=== PATIENT | male | born 1940 | race Caucasian/White ===

== ENCOUNTER 2018-11-30 06:27 | Inpatient (IN) ==
[2018-11-22 12:29] LABS: Basophils # 0.1 10*3/uL (0.0-0.2); Basophils % 1.2 % (0.0-0.8); Eosinophils # 0.2 10*3/uL (0.0-0.87); Eosinophils % 3.2 % (0.00-10.9); Hematocrit 48.5 VOL% (42.0-52.0); Hemoglobin 15.5 GM/DL (14.0-18.0); Immature Granulocytes % 0.5 %; Immature Granulocytes Absolute 0.03 #; Lymphocytes # 1.2 10*3/uL (1.4-4.0); Lymphocytes % 20.5 % (21.2-54.2); Mean Corpuscular Volume 92.2 FL (87-102); Mean Platelet Volume 9.3 FL (9.6-12.0); Monocytes % 8.6 % (1.7-12.7); Platelet Count 152 T/CUMM (130-400); Red Blood Count 5.26 MC/CUMM (3.8-5.5)
[2018-11-22 13:04] LABS: Albumin 3.8 G/DL (3.4-5.0); Bilirubin,Total 0.4 MG/DL (0.2-1.0); Calcium 8.8 MG/DL (8.5-10.1); Osmolality,Calculated 280.5 MOS/KG (273-304); Total Protein 7.6 G/DL (6.4-8.3)
[~2018-11-30 06:27] MED LIST: DIAZEPAM 5 MG TABLET PO ONE; FAMOTIDINE 20 MG TABLET PO ONE
[2018-11-30] MEDS ORDERED: LEVOFLOXACIN 500 MG TABLET PO ONE (06:30)
[2018-11-30] MEDS ORDERED: LACTATED RINGERS 1,000 ML IV SCH (07:00)
[2018-11-30] MEDS ORDERED: LIDOCAINE 2% TOP JELLY 20 ML VIAL INTRAURETH ONE (09:04)
[2018-11-30] MEDS ORDERED: BELLADONNA/OPIUM 30 MG SUPP RECTAL ONE (11:03)
[2018-11-30] MEDS ORDERED: ONDANSETRON 4 MG/2 ML VIAL IV PRN ×2 (11:09→11:21)
[2018-11-30] MEDS ORDERED: LACTULOSE 20 GM/30 ML UDCUP PO PRN (11:09)
[2018-11-30] MEDS ORDERED: oxyCODONE/ACETAMINOPHEN 5-325 MG TABLET PO PRN (11:09)
[2018-11-30] MEDS ORDERED: diphenhydrAMINE 50 MG/1 ML VIAL IV PRN (11:09)
[2018-11-30] MEDS ORDERED: BELLADONNA/OPIUM 30 MG SUPP RECTAL PRN (11:15)
[2018-11-30] MEDS ORDERED: SEVOFLURANE 1 UNIT/15 MINUTE INH ONE (11:15)
[2018-11-30] MEDS ORDERED: fentaNYL 100 MCG/2 ML VIAL ONE (11:15)
[2018-11-30] MEDS ORDERED: HYDROmorphone 2 MG/1 ML VIAL IV PRN ×2 (11:15→11:21)
[2018-11-30] MEDS ORDERED: LIDOCAINE 100 MG/5 ML SYRINGE ONE (11:15)
[2018-11-30] MEDS ORDERED: propofoL 200 MG/20 ML VIAL IV ONE (11:16)
[2018-11-30] MEDS ORDERED: PHENYLEPHRINE 1 MG/10 ML SYRINGE IV ONE (11:16)
[2018-11-30 11:59] LABS: Basophils # 0.1 10*3/uL (0.0-0.2); Basophils % 1.2 % (0.0-0.8); Eosinophils # 0.2 10*3/uL (0.0-0.87); Hematocrit 44.1 VOL% (42.0-52.0); Hemoglobin 14.2 GM/DL (14.0-18.0); Immature Granulocytes % 0.2 %; Immature Granulocytes Absolute 0.01 #; Lymphocytes # 1.3 10*3/uL (1.4-4.0); Lymphocytes % 22.8 % (21.2-54.2); Mean Corpuscular HGB Conc 32.2 GM/DL (32-36); Mean Corpuscular Volume 91.1 FL (87-102); Mean Platelet Volume 9.2 FL (9.6-12.0); Monocytes % 9.2 % (1.7-12.7); Neutrophils % 62.6 % (38.7-73.9); Platelet Count 156 T/CUMM (130-400); Red Blood Count 4.84 MC/CUMM (3.8-5.5); White Blood Count 5.7 T/CUMM (4-12)
[2018-11-30 12:15] LABS: Calcium 8.3 MG/DL (8.5-10.1); Osmolality,Calculated 282.5 MOS/KG (273-304)
[2018-11-30] MEDS: ACETAMINOPHEN 325 MG TABLET PO SCH ×3 (13:03→23:35)
[2018-11-30] MEDS: ceFAZolin 1,000 MG in SYRINGE 1 EACH IV SCH (17:51)
[2018-11-30] MEDS: traZODone 50 MG TABLET PO SCH (21:08)
[2018-11-30] MEDS: MONTELUKAST 10 MG TABLET PO SCH (21:08)
[2018-11-30] MEDS: DOCUSATE SODIUM 100 MG CAPSULE PO SCH (21:08)
[2018-12-01] MEDS ORDERED: NITROGLYCERIN SL 0.4 MG TABLET SL ONE ×2 (00:45→00:51)
[2018-12-01] MEDS ORDERED: MORPHINE 4 MG/1 ML VIAL ONE (00:45)
[2018-12-01] MEDS ORDERED: ASPIRIN 325 MG TABLET ONE (00:45)
[2018-12-01] MEDS ORDERED: BIVALIRUDIN IV ONE (01:13)
[2018-12-01] MEDS ORDERED: HEPARIN/NACL 0.9% 2 UNITS/ML 1,000 ML IV ONE (01:25)
[2018-12-01] MEDS ORDERED: LIDOCAINE 1% 20 ML VIAL ONE (01:25)
[2018-12-01 01:26] LABS: Albumin 3.5 G/DL (3.4-5.0); Bilirubin,Total 0.4 MG/DL (0.2-1.0); Calcium 8.8 MG/DL (8.5-10.1); Osmolality,Calculated 279.8 MOS/KG (273-304); Total Protein 7.1 G/DL (6.4-8.3)
[2018-12-01 01:28] LABS: PT Patient Result 11.3 SECS (9.6-12.2); Partial Thromboplastin Time 24.9 SECS (20.8-36.0)
[2018-12-01 01:40] LABS: Basophils # 0.1 10*3/uL (0.0-0.2); Basophils % 0.9 % (0.0-0.8); Eosinophils # 0.3 10*3/uL (0.0-0.87); Eosinophils % 3.4 % (0.00-10.9); Hematocrit 47.7 VOL% (42.0-52.0); Hemoglobin 15.5 GM/DL (14.0-18.0); Immature Granulocytes % 0.4 %; Immature Granulocytes Absolute 0.04 #; Lymphocytes # 2.2 10*3/uL (1.4-4.0); Lymphocytes % 23.4 % (21.2-54.2); Mean Corpuscular HGB Conc 32.5 GM/DL (32-36); Mean Corpuscular Volume 90.7 FL (87-102); Mean Platelet Volume 9.8 FL (9.6-12.0); Monocytes % 10.5 % (1.7-12.7); Neutrophils % 61.4 % (38.7-73.9); Platelet Count 188 T/CUMM (130-400); Red Blood Count 5.26 MC/CUMM (3.8-5.5); Red Cell Distribution Width 14.1 % (9.3-17.3); White Blood Count 9.2 T/CUMM (4-12)
[2018-12-01] MEDS ORDERED: HEPARIN/NACL 0.9% 2 UNITS/ML 500 ML IV ONE (02:20)
[2018-12-01] MEDS ORDERED: BIVALIRUDIN 250 MG VIAL IV ONE ×2 (02:22→03:21)
[2018-12-01] MEDS ORDERED: CLOPIDOGREL 300 MG TABLET ONE (03:00)
[2018-12-01] MEDS ORDERED: MORPHINE 4 MG/1 ML VIAL IV PRN (03:59)
[2018-12-01] MEDS ORDERED: METOPROLOL TARTRATE 5 MG/5 ML VIAL IV ONE (04:00)
[2018-12-01] MEDS: METOPROLOL TARTRATE 5 MG/5 ML VIAL IV SCH ×4 (04:00→17:17)
[2018-12-01] MEDS ORDERED: SODIUM CHLORIDE 0.9% 1,000 ML IV SCH (04:00)
[2018-12-01] MEDS ORDERED: hydrALAZINE 20 MG/1 ML VIAL IV PRN (04:02)
[2018-12-01] MEDS ORDERED: CLOPIDOGREL 300 MG TABLET PO ONE (04:33)
[2018-12-01] MEDS: CLINDAMYCIN INJ 300 MG in PREMIX 1 EACH IV SCH ×3 (05:13→17:17)
[2018-12-01] MEDS: PIPERACILLIN/TAZOBACTAM 3,375 MG in SODIUM CHLORIDE 0.9% 100 ML IV SCH ×3 (05:13→19:00)
[2018-12-01 06:34] LABS: CKMB % 7.4 %; Risk Ratio 3.53; VLDL CHOLESTEROL 41.4 MG/DL
[2018-12-01] MEDS: ACETAMINOPHEN 325 MG TABLET PO SCH ×3 (07:06→17:17)
[2018-12-01 07:36] LABS: ABG Base Excess -2.7 MMOL/L (-2.5-2.5); ABG HCO3 22.2 MMOL/L (20-26); ABG PCO2 27.2 MM HG (35-48); ABG PH 7.461 (7.35-7.45); ABG TCO2 16.2 MMOL/L (23-27)
[2018-12-01] MEDS: BIVALIRUDIN 250 MG in SODIUM CHLORIDE 0.9% 50 ML IV SCH ×2 (08:05→08:08)
[2018-12-01] MEDS: ceFAZolin 1,000 MG in SYRINGE 1 EACH IV SCH (08:07)
[2018-12-01] MEDS: ASPIRIN 325 MG TABLET PO SCH (08:50)
[2018-12-01] MEDS: allopurinoL 300 MG TABLET PO SCH (08:51)
[2018-12-01] MEDS: DOCUSATE SODIUM 100 MG CAPSULE PO SCH ×2 (08:51→20:10)
[2018-12-01] MEDS: FUROSEMIDE 20 MG TABLET PO SCH (08:51)
[2018-12-01] MEDS: FAMOTIDINE 20 MG TABLET PO SCH (08:51)
[2018-12-01] MEDS: ROSUVASTATIN 20 MG TABLET PO SCH (08:51)
[2018-12-01] MEDS: atenoloL 25 MG TABLET PO SCH (08:52)
[2018-12-01] MEDS: SERTRALINE 25 MG TABLET PO SCH (08:52)
[2018-12-01 09:59] LABS: ABG Base Excess -2.1 MMOL/L (-2.5-2.5); ABG HCO3 22.7 MMOL/L (20-26); ABG Oxygen Saturation 99.4 % (95-100); ABG PCO2 34.9 MM HG (35-48); ABG PH 7.404 (7.35-7.45); ABG TCO2 18.3 MMOL/L (23-27)
[2018-12-01 13:40] LABS: CKMB % 5.9 %
[2018-12-01 13:43] LABS: Troponin I > 200.000 NG/ML (0.00-0.045)
[2018-12-01] MEDS: traZODone 50 MG TABLET PO SCH (20:11)
[2018-12-01] MEDS: MONTELUKAST 10 MG TABLET PO SCH (20:12)
[2018-12-01 21:01] LABS: CKMB % 4.5 %
[2018-12-02 03:15] LABS: ABG Base Excess -2.9 MMOL/L (-2.5-2.5); ABG Oxygen Saturation 99.3 % (95-100); ABG PCO2 32.4 MM HG (35-48); ABG PH 7.413 (7.35-7.45); ABG TCO2 17.8 MMOL/L (23-27)
[2018-12-02 03:20] LABS: Basophils % 0.2 % (0.0-0.8); Hematocrit 42.4 VOL% (42.0-52.0); Hemoglobin 13.8 GM/DL (14.0-18.0); Immature Granulocytes % 0.5 %; Immature Granulocytes Absolute 0.05 #; Mean Corpuscular HGB Conc 32.5 GM/DL (32-36); Mean Corpuscular Volume 89.8 FL (87-102); Mean Platelet Volume 9.6 FL (9.6-12.0); Monocytes % 9.8 % (1.7-12.7); Neutrophils % 79.5 % (38.7-73.9); Platelet Count 161 T/CUMM (130-400); Red Blood Count 4.72 MC/CUMM (3.8-5.5); Red Cell Distribution Width 14.6 % (9.3-17.3); White Blood Count 9.6 T/CUMM (4-12)
[2018-12-02 03:37] LABS: Calcium 7.9 MG/DL (8.5-10.1); Osmolality,Calculated 286.4 MOS/KG (273-304)
[2018-12-02] MEDS: PIPERACILLIN/TAZOBACTAM 3,375 MG in SODIUM CHLORIDE 0.9% 100 ML IV SCH ×3 (04:00→21:21)
[2018-12-02] MEDS: CLINDAMYCIN INJ 300 MG in PREMIX 1 EACH IV SCH ×3 (05:23→11:26)
[2018-12-02] MEDS: METOPROLOL TARTRATE 5 MG/5 ML VIAL IV SCH ×5 (06:03→23:55)
[2018-12-02] MEDS: ACETAMINOPHEN 325 MG TABLET PO SCH ×5 (08:03→23:55)
[2018-12-02] MEDS: FUROSEMIDE 20 MG TABLET PO SCH (08:22)
[2018-12-02] MEDS: SERTRALINE 25 MG TABLET PO SCH (08:22)
[2018-12-02] MEDS: allopurinoL 300 MG TABLET PO SCH (08:22)
[2018-12-02] MEDS: FAMOTIDINE 20 MG TABLET PO SCH (08:22)
[2018-12-02] MEDS: ASPIRIN 325 MG TABLET PO SCH (08:22)
[2018-12-02] MEDS: CLOPIDOGREL 75 MG TABLET PO SCH (08:22)
[2018-12-02] MEDS: ROSUVASTATIN 20 MG TABLET PO SCH (08:22)
[2018-12-02] MEDS: DOCUSATE SODIUM 100 MG CAPSULE PO SCH ×2 (08:53→21:21)
[2018-12-02 10:40] LABS: ABG Base Excess -2.8 MMOL/L (-2.5-2.5); ABG Oxygen Saturation 94.3 % (95-100); ABG PCO2 33.8 MM HG (35-48); ABG PH 7.403 (7.35-7.45); ABG PO2 68.4 MM HG (80-95); ABG TCO2 18.1 MMOL/L (23-27); Pt O2 Delivery Device Ventilator
[2018-12-02] MEDS: ALBUTEROL/IPRATROPIUM 3 ML NEB RESP TX SCH ×3 (15:40→23:41)
[2018-12-02] MEDS: traZODone 50 MG TABLET PO SCH (21:21)
[2018-12-02] MEDS: MONTELUKAST 10 MG TABLET PO SCH (21:21)
[2018-12-03] MEDS: ALBUTEROL/IPRATROPIUM 3 ML NEB RESP TX SCH ×6 (03:54→23:42)
[2018-12-03 04:35] LABS: Basophils % 0.3 % (0.0-0.8); Eosinophils % 0.1 % (0.00-10.9); Hematocrit 43.6 VOL% (42.0-52.0); Hemoglobin 13.8 GM/DL (14.0-18.0); Immature Granulocytes % 0.5 %; Immature Granulocytes Absolute 0.05 #; Lymphocytes # 0.9 10*3/uL (1.4-4.0); Mean Corpuscular HGB Conc 31.7 GM/DL (32-36); Mean Corpuscular Volume 92.2 FL (87-102); Mean Platelet Volume 10.1 FL (9.6-12.0); Monocytes % 10.8 % (1.7-12.7); Neutrophils % 79.3 % (38.7-73.9); Platelet Count 143 T/CUMM (130-400); Red Blood Count 4.73 MC/CUMM (3.8-5.5); Red Cell Distribution Width 14.6 % (9.3-17.3); White Blood Count 10.4 T/CUMM (4-12)
[2018-12-03 04:59] LABS: Calcium 8.4 MG/DL (8.5-10.1)
[2018-12-03] MEDS: PIPERACILLIN/TAZOBACTAM 3,375 MG in SODIUM CHLORIDE 0.9% 100 ML IV SCH ×2 (06:00→16:45)
[2018-12-03] MEDS: METOPROLOL TARTRATE 5 MG/5 ML VIAL IV SCH ×3 (06:01→18:28)
[2018-12-03] MEDS: ACETAMINOPHEN 325 MG TABLET PO SCH ×3 (06:01→18:27)
[2018-12-03] MEDS: ROSUVASTATIN 20 MG TABLET PO SCH (08:40)
[2018-12-03] MEDS: allopurinoL 300 MG TABLET PO SCH (08:40)
[2018-12-03] MEDS: DOCUSATE SODIUM 100 MG CAPSULE PO SCH ×2 (08:40→21:38)
[2018-12-03] MEDS: CLOPIDOGREL 75 MG TABLET PO SCH (08:40)
[2018-12-03] MEDS: FAMOTIDINE 20 MG TABLET PO SCH (08:40)
[2018-12-03] MEDS: FUROSEMIDE 20 MG TABLET PO SCH (08:40)
[2018-12-03] MEDS: ASPIRIN 325 MG TABLET PO SCH (08:41)
[2018-12-03] MEDS: SERTRALINE 25 MG TABLET PO SCH (08:41)
[2018-12-03] MEDS ORDERED: AMIODARONE INJ 450 MG in DEXTROSE 5% 241 ML IV SCH (09:00)
[2018-12-03] MEDS: atenoloL 25 MG TABLET PO SCH ×2 (13:29→14:28)
[2018-12-03] MEDS: AMIODARONE INJ 450 MG in DEXTROSE 5% 241 ML IV SCH (18:05)
[2018-12-03] MEDS: traZODone 50 MG TABLET PO SCH (21:38)
[2018-12-03] MEDS: MONTELUKAST 10 MG TABLET PO SCH (21:38)
[2018-12-04] MEDS: ACETAMINOPHEN 325 MG TABLET PO SCH ×5 (00:20→23:44)
[2018-12-04] MEDS: METOPROLOL TARTRATE 5 MG/5 ML VIAL IV SCH ×5 (00:21→23:45)
[2018-12-04] MEDS: PIPERACILLIN/TAZOBACTAM 3,375 MG in SODIUM CHLORIDE 0.9% 100 ML IV SCH ×3 (00:21→17:15)
[2018-12-04] MEDS: ALBUTEROL/IPRATROPIUM 3 ML NEB RESP TX SCH ×5 (03:14→20:53)
[2018-12-04 04:54] LABS: Basophils # 0.1 10*3/uL (0.0-0.2); Basophils % 0.7 % (0.0-0.8); Eosinophils # 0.1 10*3/uL (0.0-0.87); Hematocrit 45.3 VOL% (42.0-52.0); Hemoglobin 14.4 GM/DL (14.0-18.0); Immature Granulocytes % 0.8 %; Immature Granulocytes Absolute 0.08 #; Lymphocytes # 0.9 10*3/uL (1.4-4.0); Mean Corpuscular HGB Conc 31.8 GM/DL (32-36); Mean Platelet Volume 10.2 FL (9.6-12.0); Monocytes % 10.5 % (1.7-12.7); Platelet Count 134 T/CUMM (130-400); Red Blood Count 4.87 MC/CUMM (3.8-5.5); Red Cell Distribution Width 14.6 % (9.3-17.3); White Blood Count 10.5 T/CUMM (4-12)
[2018-12-04 05:09] LABS: Calcium 8.6 MG/DL (8.5-10.1); Osmolality,Calculated 282.5 MOS/KG (273-304)
[2018-12-04] MEDS: ROSUVASTATIN 20 MG TABLET PO SCH (09:20)
[2018-12-04] MEDS: CLOPIDOGREL 75 MG TABLET PO SCH (09:21)
[2018-12-04] MEDS: FAMOTIDINE 20 MG TABLET PO SCH (09:21)
[2018-12-04] MEDS: DOCUSATE SODIUM 100 MG CAPSULE PO SCH ×2 (09:21→20:59)
[2018-12-04] MEDS: ASPIRIN 325 MG TABLET PO SCH (09:21)
[2018-12-04] MEDS: FUROSEMIDE 20 MG TABLET PO SCH (09:21)
[2018-12-04] MEDS: SERTRALINE 25 MG TABLET PO SCH (09:21)
[2018-12-04] MEDS: allopurinoL 300 MG TABLET PO SCH (09:21)
[2018-12-04] MEDS: AMIODARONE INJ 450 MG in DEXTROSE 5% 241 ML IV SCH (11:16)
[2018-12-04] MEDS: FLUTICASONE 50 MCG NASAL SPRAY 16 GM BOTTLE BOTH NARES SCH ×2 (11:56→21:01)
[2018-12-04] MEDS: traZODone 50 MG TABLET PO SCH (20:59)
[2018-12-04] MEDS: MONTELUKAST 10 MG TABLET PO SCH (20:59)
[2018-12-04] MEDS ORDERED: atenoloL 25 MG TABLET PO SCH (21:00)
[2018-12-05] MEDS: PIPERACILLIN/TAZOBACTAM 3,375 MG in SODIUM CHLORIDE 0.9% 100 ML IV SCH ×3 (00:56→18:09)
[2018-12-05] MEDS: ALBUTEROL/IPRATROPIUM 3 ML NEB RESP TX SCH ×6 (01:29→20:54)
[2018-12-05 05:10] LABS: Basophils # 0.1 10*3/uL (0.0-0.2); Basophils % 0.6 % (0.0-0.8); Eosinophils # 0.3 10*3/uL (0.0-0.87); Eosinophils % 3.6 % (0.00-10.9); Hematocrit 46.3 VOL% (42.0-52.0); Hemoglobin 14.8 GM/DL (14.0-18.0); Immature Granulocytes % 0.7 %; Immature Granulocytes Absolute 0.07 #; Lymphocytes % 10.7 % (21.2-54.2); Mean Corpuscular Volume 91.1 FL (87-102); Mean Platelet Volume 9.9 FL (9.6-12.0); Monocytes % 12.1 % (1.7-12.7); Neutrophils % 72.3 % (38.7-73.9); Platelet Count 149 T/CUMM (130-400); Red Blood Count 5.08 MC/CUMM (3.8-5.5); Red Cell Distribution Width 14.5 % (9.3-17.3); White Blood Count 9.5 T/CUMM (4-12)
[2018-12-05 05:12] LABS: Osmolality,Calculated 288.1 MOS/KG (273-304)
[2018-12-05] MEDS: METOPROLOL TARTRATE 5 MG/5 ML VIAL IV SCH (05:19)
[2018-12-05] MEDS: ACETAMINOPHEN 325 MG TABLET PO SCH ×3 (05:19→18:09)
[2018-12-05] MEDS ORDERED: ASPIRIN CHEW 81 MG TABLET PO SCH (09:00)
[2018-12-05] MEDS: CLOPIDOGREL 75 MG TABLET PO SCH (09:20)
[2018-12-05] MEDS: FUROSEMIDE 20 MG TABLET PO SCH (09:20)
[2018-12-05] MEDS: SERTRALINE 25 MG TABLET PO SCH (09:20)
[2018-12-05] MEDS: allopurinoL 300 MG TABLET PO SCH (09:20)
[2018-12-05] MEDS: FAMOTIDINE 20 MG TABLET PO SCH (09:20)
[2018-12-05] MEDS: FLUTICASONE 50 MCG NASAL SPRAY 16 GM BOTTLE BOTH NARES SCH ×2 (09:21→21:56)
[2018-12-05] MEDS: ROSUVASTATIN 20 MG TABLET PO SCH (09:21)
[2018-12-05] MEDS: DOCUSATE SODIUM 100 MG CAPSULE PO SCH ×2 (09:21→21:55)
[2018-12-05] MEDS: ASPIRIN 325 MG TABLET PO SCH (09:21)
[2018-12-05] MEDS ORDERED: atenoloL 25 MG TABLET PO SCH (09:58)
[2018-12-05] MEDS ORDERED: atenoloL 25 MG TABLET PO ONE (09:58)
[2018-12-05] MEDS: MONTELUKAST 10 MG TABLET PO SCH (21:54)
[2018-12-05] MEDS: APIXABAN 2.5 MG TABLET PO SCH (21:55)
[2018-12-05] MEDS: traZODone 50 MG TABLET PO SCH (21:55)
[2018-12-06] MEDS: ALBUTEROL/IPRATROPIUM 3 ML NEB RESP TX SCH ×7 (00:58→23:44)
[2018-12-06] MEDS: ACETAMINOPHEN 325 MG TABLET PO SCH ×5 (01:37→23:00)
[2018-12-06] MEDS: PIPERACILLIN/TAZOBACTAM 3,375 MG in SODIUM CHLORIDE 0.9% 100 ML IV SCH ×3 (02:35→18:21)
[2018-12-06 04:04] LABS: Osmolality,Calculated 280.7 MOS/KG (273-304)
[2018-12-06] MEDS: CLOPIDOGREL 75 MG TABLET PO SCH (09:42)
[2018-12-06] MEDS: ROSUVASTATIN 20 MG TABLET PO SCH (09:42)
[2018-12-06] MEDS: FUROSEMIDE 20 MG TABLET PO SCH (09:43)
[2018-12-06] MEDS: APIXABAN 2.5 MG TABLET PO SCH ×2 (09:43→21:25)
[2018-12-06] MEDS: DOCUSATE SODIUM 100 MG CAPSULE PO SCH ×2 (09:43→21:25)
[2018-12-06] MEDS: allopurinoL 300 MG TABLET PO SCH (09:43)
[2018-12-06] MEDS: SERTRALINE 25 MG TABLET PO SCH (09:43)
[2018-12-06] MEDS: atenoloL 25 MG TABLET PO SCH ×2 (09:43→21:25)
[2018-12-06] MEDS: FAMOTIDINE 20 MG TABLET PO SCH (09:43)
[2018-12-06] MEDS: FLUTICASONE 50 MCG NASAL SPRAY 16 GM BOTTLE BOTH NARES SCH ×2 (09:44→21:25)
[2018-12-06] MEDS: SODIUM CHLORIDE 0.9% 1,000 ML IV SCH (16:00)
[2018-12-06] MEDS: MONTELUKAST 10 MG TABLET PO SCH (21:25)
[2018-12-06] MEDS: traZODone 50 MG TABLET PO SCH (21:25)
[2018-12-07] MEDS: ALBUTEROL/IPRATROPIUM 3 ML NEB RESP TX SCH ×2 (03:08→07:10)
[2018-12-07 04:49] LABS: Basophils # 0.1 10*3/uL (0.0-0.2); Basophils % 0.8 % (0.0-0.8); Eosinophils # 0.4 10*3/uL (0.0-0.87); Eosinophils % 4.3 % (0.00-10.9); Hematocrit 41.5 VOL% (42.0-52.0); Hemoglobin 13.2 GM/DL (14.0-18.0); Immature Granulocytes % 0.7 %; Immature Granulocytes Absolute 0.06 #; Lymphocytes % 11.1 % (21.2-54.2); Mean Corpuscular HGB Conc 31.8 GM/DL (32-36); Mean Corpuscular Volume 90.4 FL (87-102); Neutrophils % 70.1 % (38.7-73.9); Platelet Count 190 T/CUMM (130-400); Red Blood Count 4.59 MC/CUMM (3.8-5.5); Red Cell Distribution Width 14.4 % (9.3-17.3); White Blood Count 8.9 T/CUMM (4-12)
[2018-12-07 05:19] LABS: Calcium 8.8 MG/DL (8.5-10.1); Osmolality,Calculated 280.7 MOS/KG (273-304)
[2018-12-07] MEDS: PIPERACILLIN/TAZOBACTAM 3,375 MG in SODIUM CHLORIDE 0.9% 100 ML IV SCH (06:15)
[2018-12-07] MEDS: ACETAMINOPHEN 325 MG TABLET PO SCH (07:41)
[2018-12-07 08:04] VITALS: BP 126/62
[2018-12-07] MEDS: ROSUVASTATIN 20 MG TABLET PO SCH (08:58)
[2018-12-07] MEDS: CLOPIDOGREL 75 MG TABLET PO SCH (08:58)
[2018-12-07] MEDS: DOCUSATE SODIUM 100 MG CAPSULE PO SCH (08:58)
[2018-12-07] MEDS: FUROSEMIDE 20 MG TABLET PO SCH (08:59)
[2018-12-07] MEDS: APIXABAN 2.5 MG TABLET PO SCH (08:59)
[2018-12-07] MEDS: FAMOTIDINE 20 MG TABLET PO SCH (08:59)
[2018-12-07] MEDS: FLUTICASONE 50 MCG NASAL SPRAY 16 GM BOTTLE BOTH NARES SCH (08:59)
[2018-12-07] MEDS: SERTRALINE 25 MG TABLET PO SCH (08:59)
[2018-12-07] MEDS: atenoloL 25 MG TABLET PO SCH (08:59)
[2018-12-07] MEDS: allopurinoL 300 MG TABLET PO SCH (08:59)
[2018-12-07] MEDS: SODIUM CHLORIDE 0.9% 1,000 ML IV SCH (11:20)
== END 2018-12-07 11:30 | DRG 250 ==
LOC: N.OR 06:27 → N.SDSINP 06:28 → N.5E 11:57 → N.CC 12-01 02:32 → N.TELES 12-03 17:56
PROVIDERS: ADMIT Surgery; ATTEND Surgery